=== PATIENT | male | born 2000 | race Hispanic/Latino ===

== ENCOUNTER 2018-03-28 20:02 | Emergency (ER) | payer OTHER ==
[2018-03-28 20:36] VITALS: BP 134/61; PULSE 82; RESP 18; TEMP 98.8; O2SAT 96
--- NOTE | 2018-03-28 21:40 | ED PDOC ---
History of Present Illness History of Present Illness: Sergio Zuniga is a 18 year old male, with no significant past medical history, who presents to the emergency department for evaluation of feeling fatigued since yesterday. Patient reports having cold symptoms for x3 weeks, he went to an Urgent Care center yesterday and was prescribed a Z-carmen and Meclizine for Sinusitis/Dizziness. He reports a slight pressure-like headache around the eyes and a mild cough but denies any fever, chills, ear pain, sore throat, chest pain, shortness of breath, vomiting, diarrhea, neck pain/stiffness, or other medial complaints. No dizziness at present. PMD: [place] HPI: Influenza Time Seen by Provider: 03/28/18 21:34 Chief Complaint: Cough, Cold, Congestion Chief Complaint (Provider): cough, cold History Per: Patient Exam Limitations: no limitations Symptoms include: headache (mild), cough (mild). denies: fever, sore throat, vomiting, diarrhea, chest pain, difficulty breathing Past Medical History Reviewed: Historical Data, Nursing Documentation, Vital Signs Vital Signs: Last Vital Signs Temp 98.8 F 03/28/18 20:32 Pulse 82 03/28/18 20:32 Resp 18 03/28/18 20:32 BP 134/61 03/28/18 20:32 Pulse Ox 96 03/28/18 20:32 - Medical History PMH: No Chronic Diseases - Surgical History Surgical History: Appendectomy - Family History Family History: States: Unknown Family Hx - Home Medications Home Medications: Ambulatory Orders Medication Instructions Recorded RX: Naproxen 500 mg PO BID PRN #20 tab 03/28/18 - Allergies Allergies/Adverse Reactions: Allergies Allergy/AdvReac Type Severity Reaction Status Date / Time clindamycin Allergy RASH Verified 03/28/18 20:32 Penicillins Allergy RASH Verified 03/28/18 20:32 Review of Systems ROS Statement: Except As Marked, All Systems Reviewed And Found Negative Constitutional: Positive for: Other (fatigue). Negative for: Fever, Chills ENT: Negative for: Ear Pain, Throat Pain Cardiovascular: Negative for: Chest Pain Respiratory: Positive for: Cough (mild). Negative for: Shortness of Breath Gastrointestinal: Negative for: Nausea, Vomiting, Diarrhea Neurological: Positive for: Headache (mild) Physical Exam - Reviewed Nursing Documentation Reviewed: Yes Vital Signs Reviewed: Yes - Physical Exam Comments: GENERAL APPEARANCE: Patient is awake, alert, oriented x 3, in no acute distress. Resting comfortably. SKIN: Warm, dry; (-) cyanosis. EYES: (-) conjunctival injection ENMT: Mucous membranes moist. Airway patent: (-) stridor. Pharynx: clear, uvula midline (-) swelling, (-) erythema, (-) exudate. (-) sinus tenderness. TMs: nonbulging and nonerythematous. NECK: Supple, FROM (-) tenderness, (-) stiffness, (-) lymphadenopathy. CHEST AND RESPIRATORY: (-) rhonchi, (-) rales, (-) wheezes; breath sounds equal bilaterally. Respirations nonlabored. HEART AND CARDIOVASCULAR: (-) irregularity ABDOMEN AND GI: Soft; (-) tenderness. EXTREMITIES: (-) deformity NEURO AND PSYCH: Mental status as above. Cranial nerves grossly intact; strength symmetric. Gait: steady. Speech: clear. (-) facial asymmetry. Strength and tone good. EOMI and painless. Pupils equal and reactive. Medical Decision Making Medical Decision Making: Time: 21:35 Initial Impression: Fatigue and sinusitis Initial Plan: --CBC --CMP --Monospot --Re-evaluation 2250 CBC And CMP grossly unremarkable. [place] (+). On exam, patient remains AAOx3, in no acute distress. Lungs clear to auscultation, cardiac RRR, repeat neuro exam shows no focal findings. Vitals stable. Lab/Diagnostic results d/w the patient in great detail. Diagnosis of sinusitis, fatigue, mononucleosis d/w the patient. Patient advised to avoid contact sports. Based on history, exam and diagnostic results, plan will be for outpatient follow up. Return parameters discussed. Patient instructed to follow-up with pmd / referral provided / the clinic in 1- 2 days without fail. Advised to take medication as prescribed from clinic. Return to the emergency room at any time for any new or worsening symptoms. Patient states he fully agrees with and understands discharge instructions. States that he agrees with the plan and disposition. Verbalized and repeated discharge instructions and plan. I have given the patient opportunity to ask any additional questions. Scribe Attestation: Documented by Juan Pablo Arora, acting as a scribe for Vanessa Monsalve PA-C. Provider Scribe Attestation: All medical record entries made by the Scribe were at my direction and personally dictated by me. I have reviewed the chart and agree that the record accurately reflects my personal performance of the history, physical exam, medical decision making, and the department course for this patient. I have also personally directed, reviewed, and agree with the discharge instructions and disposition. - Laboratory Results Result Diagrams: 03/28/18 22:13 03/28/18 22:13 - ECG O2 Sat by Pulse Oximetry: 96 (RA) Pulse Ox Interpretation: Normal Disposition - Clinical Impression Clinical Impression: Sinusitis, Fatigue, Dizziness, Mononucleosis - Patient ED Disposition Is Patient to be Admitted: No Counseled Patient/Family Regarding: Studies Performed, Diagnosis, Need For Followup, Rx Given - Disposition Referrals: [facility] [Provider Group] Disposition: Routine/Home Disposition Time: 22:50 Condition: STABLE Additional Instructions: CONTINUE PRESCRIBED MEDICATION FROM CLINIC. The emergency medical care you received today was directed at your acute symptoms. If you were prescribed any medication, please fill it and take as directed. It may take several days for your symptoms to resolve. Return to the Emergency Department if your symptoms worsen, do not improve, or if you have any other problems. Please contact your doctor in 2 days for re-evaluation and follow up / or call one of the physicians/clinics you have been referred to that are listed on the Patient Visit Information form that is included in your discharge packet. Bring any paperwork you were given at discharge with you along with any medications you are taking to your follow up visit. Our treatment cannot replace ongoing medical care by a primary care provider (PCP) outside of the emergency department. Prescriptions: RX: Naproxen 500 mg PO BID PRN #20 tab PRN Reason: headache/pain Instructions: Sinusitis in Adults, Fatigue (DC), Mononucleosis, Dizziness, Nonvertigo, (DC) Forms: [employer] (Persian) Print Language: [place] - POA Present On Arrival: None Results - Lab Results Lab Results: 03/28/18 03/28/18 03/28/18 22:13 22:13 22:13 WBC 6.6 RBC 4.92 Hgb 15.0 Hct 45.1 MCV 91.6 MCH 30.4 MCHC 33.2 RDW 13.5 Plt Count 218 MPV 8.9 Neut % (Auto) 54.0 Lymph % (Auto) 34.8 [place] % (Auto) 8.4 Eos % (Auto) 2.2 Baso % (Auto) 0.6 Neut # (Auto) 3.5 Lymph # (Auto) 2.3 [place] # (Auto) 0.5 Eos # (Auto) 0.1 Baso # (Auto) 0.0 Sodium 140 Potassium 4.2 Chloride 106 Carbon Dioxide 22 Anion Gap 16 BUN 21 H Creatinine 1.0 Est GFR ( Amer) > 60 Est GFR (Non-Af Amer) > 60 Random Glucose 88 Calcium 9.8 Total Bilirubin 0.6 AST 25 ALT 30 Alkaline Phosphatase 71 Total Protein 7.8 Albumin 4.2 Globulin 3.7 Albumin/Globulin Ratio 1.1 Infectious [place] Assay Positive H
[2018-03-28 22:28] LABS: BASO % 0.6 % (0.0-2.0); EOS # 0.1 K/uL (0.0-0.7); EOS % 2.2 % (0.0-4.0); LYMPH # 2.3 K/uL (1.0-4.3); LYMPH % 34.8 % (20.0-40.0); MEAN CELL VOLUME 91.6 fl (80.0-94.0); MEAN CORPUSCULAR HEMOGLOBIN 30.4 pg (27.0-31.0); MEAN CORPUSCULAR HGB CONC 33.2 g/dL (33.0-37.0); MEAN PLATELET VOLUME 8.9 fl (7.2-11.7); MONO # 0.5 K/uL (0.0-0.8); MONO % 8.4 % (0.0-10.0); NEUT # 3.5 K/uL (1.8-7.0); NRBC % 0.1 % (0.0-0.0); RBC 4.92 Mil/uL (4.40-5.90); RED CELL DISTRIBUTION WIDTH 13.5 % (11.5-14.5); WHITE BLOOD COUNT 6.6 K/uL (4.8-10.8)
[2018-03-28 22:38] LABS: ALB/GLOB RATIO 1.1 (1.0-2.1); ALBUMIN 4.2 g/dL (3.5-5.0); ALT/SGPT 30 U/L (21-72); AST/SGOT 25 U/L (17-59); BLOOD UREA NITROGEN 21 mg/dl (9-20); CALCIUM 9.8 mg/dL (8.4-10.2); GFR NON-AFRICAN AMERICAN > 60
== END 2018-03-28 23:23 | disposition home or self-care (01) ==
LOC: H.ER 20:02
DX: B27.90 Infectious mononucleosis, unspecified without complication (principal); R53.83 Other fatigue; J32.9 Chronic sinusitis, unspecified; Z88.0 Allergy status to penicillin